=== PATIENT | female | born 1940 | race Caucasian/White ===

== ENCOUNTER 2018-04-10 13:48 | Emergency (ER) | payer MEDICARE, OTHER ==
[2018-04-10] MEDS ORDERED: Ketorolac 30 MG/ML SDV IM ONE (13:57)
[2018-04-10] MEDS ORDERED: Ondansetron 4 MG Tab.DIS PO ONE (14:05)
[2018-04-10] MEDS ORDERED: Cyclobenzaprine 10 MG Tab PO ONE (14:05)
[2018-04-10] MEDS ORDERED: Acetaminophen/HYDROcodone 325-10 MG Tab PO ONE (14:05)
--- NOTE | 2018-04-10 15:36 | EDM.PDOC ---
<Capo Olivo - Last Filed: 04/10/18 17:44> ED HPI GENERAL MEDICAL PROBLEM - General Chief Complaint: Back Pain or Injury Stated Complaint: BACK ACHE Time Seen by Provider: 04/10/18 13:57 Source of Information: Reports: Patient History Limitations: Reports: No Limitations - History of Present Illness INITIAL COMMENTS - FREE TEXT/NARRATIVE: Patient reports back pain that started last night. She describes the pain as cramping on the left upper buttock and hip. She denies numbness or tingling, radiation of pain. No weakness to either leg or problems with urinary or bowel function. She denies fever, chills, chest pain, SOB, neck pain. She does have a history of chronic lower back pain with history of a fall in 1974 and a fusion to her lower back from that fall down the stairs. Does complain of some nausea. Onset Date: 04/09/18 Duration: Intermittent Location: Reports: Back Quality: Reports: Other (cramping) Severity: Moderate Improves with: Reports: Heat Therapy, Medication Associated Symptoms: Reports: Nausea/Vomiting Lower Back Pain Score (Numeric/FACES): 10 - Related Data Allergies Allergy/AdvReac Type Severity Reaction Status Date / Time guaifenesin [From Mucinex] Allergy Hives Verified 04/10/18 13:59 metformin Allergy Diarrhea Verified 04/10/18 13:59 Penicillins Allergy Hives Verified 04/10/18 13:59 Home Meds: Home Meds Aspirin 81 mg PO DAILY 01/25/16 [History] Atenolol 25 mg PO DAILY 01/25/16 [History] Pantoprazole [Protonix] 40 mg PO DAILY 01/25/16 [History] Acetaminophen 650 mg PO Q4H PRN MDD 4000mg daily 04/10/18 [History] Albuterol Sulfate 2.5 mg PO Q4H PRN 04/10/18 [History] Albuterol Sulfate [Proair Hfa] 2 puff PO Q4H PRN 04/10/18 [History] Celecoxib 200 mg PO DAILY 04/10/18 [History] Clobetasol [Clobetasol Propionate 0.05%] 1 applic TOP BID PRN 04/10/18 [History] Fluticasone/Salmeterol [Advair 500-50] 1 puff PO BID 04/10/18 [History] Levothyroxine Sodium [Synthroid] 37.5 mcg PO DAILY 04/10/18 [History] Montelukast [Singulair] 10 mg PO BEDTIME 04/10/18 [History] Olopatadine HCl 1 drop EYEBOTH BID PRN 04/10/18 [History] Scopolamine [Transderm-Scop] 1 patch TOP Q72H 04/10/18 [History] Tiotropium [Spiriva Handihaler] 1 cap PO DAILY 04/10/18 [History] Triamcinolone Acetonide [Kenalog 0.1% Crm] 1 applic TOP BID PRN 04/10/18 [ History] Triamterene/Hydrochlorothiazid [Dyazide 37.5-25] 1 cap PO DAILY 04/10/18 [ History] amLODIPine Besylate [Norvasc] 10 mg PO DAILY 04/10/18 [History] Past Medical History Cardiovascular History: Reports: High Cholesterol, Hypertension Gastrointestinal History: Reports: GERD Musculoskeletal History: Reports: Arthritis, Back Pain, Chronic - Past Surgical History Musculoskeletal Surgical History: Reports: Other (See Below) Other Musculoskeletal Surgeries/Procedures:: back surgery Social & Family History - Tobacco Use Smoking Status *Q: Unknown Ever Smoked - Recreational Drug Use Recreational Drug Use: No ED ROS GENERAL - Review of Systems Review Of Systems: See Below Constitutional: Reports: No Symptoms HEENT: Reports: No Symptoms Respiratory: Reports: No Symptoms Cardiovascular: Reports: No Symptoms Endocrine: Reports: No Symptoms GI/Abdominal: Reports: Nausea : Reports: No Symptoms Musculoskeletal: Reports: Back Pain Skin: Reports: No Symptoms Neurological: Reports: No Symptoms Psychiatric: Reports: No Symptoms Hematologic/Lymphatic: Reports: No Symptoms Immunologic: Reports: No Symptoms ED EXAM,LOWER BACK PAIN/INJURY - Physical Exam Exam: See Below Exam Limited By: No Limitations General Appearance: Alert, WD/WN, Moderate Distress Eye Exam: Bilateral Eye: EOMI, PERRL Head: Atraumatic, Normocephalic Neck: Normal Inspection, Supple, Non-Tender, Full Range of Motion Respiratory/Chest: No Respiratory Distress, Lungs Clear, Normal Breath Sounds, No Accessory Muscle Use, Chest Non-Tender Cardiovascular: Normal Peripheral Pulses, Regular Rate, Rhythm, No Edema, No Gallop, No JVD, No Murmur, No Rub Back Exam: Decreased Range of Motion Extremities: Normal Inspection, Normal Range of Motion, Normal Capillary Refill Neurological: Alert, Normal Mood/Affect, Normal Dorsiflexion, CN II-XII Intact, Oriented x 3, Straight Leg Raise (L), Straight Leg Raise (R) Psychiatric: Normal Affect, Normal Mood Skin Exam: Warm, Dry, Intact, Normal Color, No Rash Lymphatic: No Adenopathy Course - Vital Signs Last Recorded V/S: Last Vital Signs Temp 36.9 C 04/10/18 13:48 Pulse 87 04/10/18 17:07 Resp 16 04/10/18 17:07 BP 155/72 H 04/10/18 17:07 Pulse Ox 98 04/10/18 13:48 - Orders/Labs/Meds Orders: Active Orders 24 hr Category Date Time Status Lumbar Spine 2 or 3V [CR] Stat Exams 04/10/18 13:58 Taken Lumbar Spine wo Cont [CT] Stat Exams 04/10/18 14:57 Taken Labs: Laboratory Tests 04/10/18 04/10/18 Range/Units 15:47 16:13 WBC 13.2 H (4.0-10.0) x10^3/uL RBC 4.66 (4.00-5.50) x10^6/uL Hgb 14.8 D (12.0-16.0) g/dL Hct 43.0 (33.0-47.0) % MCV 92.3 (78.0-93.0) fL MCH 31.8 (26.0-32.0) pg MCHC 34.4 (32.0-36.0) g/dL RDW Coeff of Doyle 13.2 (10.0-15.0) % Plt Count 300 (130-400) x10^3/uL Neut % (Auto) 76.3 (50.0-80.0) % Lymph % (Auto) 15.0 L (25.0-50.0) % [place] % (Auto) 8.3 (2.0-11.0) % Eos % (Auto) 0.2 (0.0-4.0) % Baso % (Auto) 0.2 (0.2-1.2) % Urine Color Yellow (YELLOW) Urine Appearance Slightly cloudy H (CLEAR) Urine pH 7.0 (5.0-8.0) Ur Specific Cash 1.020 Urine Protein Trace H (NEGATIVE) mg/dL Urine Glucose (UA) Negative (NEGATIVE) mg/dL Urine Ketones Negative (NEGATIVE) mg/dL Urine Occult Blood Negative (NEGATIVE) Urine Nitrite Negative (NEGATIVE) Urine Bilirubin Negative (NEGATIVE) Urine Urobilinogen 0.2 (0.2) EU/dL Ur Leukocyte Esterase Small H (NEGATIVE) Urine RBC 0-5 (NOT SEEN) /HPF Urine WBC 5-10 H (NOT SEEN) /HPF Ur Squamous Epith Cells Many H (NEGATIVE) /HPF Urine Bacteria Rare (NEGATIVE) /HPF Urine Mucus Rare H (NEGATIVE) /LPF Meds: Medications Discontinued Medications Generic Name Dose Route Start Last Admin Trade Name Freq PRN Reason Stop Dose Admin Hydrocodone Bitart/Acetaminophen 1 tab 04/10/18 14:05 04/10/18 14:22 [place] 325-10 Mg PO 04/10/18 14:06 1 tab ONETIME ONE Administration Cyclobenzaprine HCl 10 mg 04/10/18 14:05 04/10/18 14:23 Flexeril PO 04/10/18 14:06 10 mg ONETIME ONE Administration Ketorolac Tromethamine 30 mg 04/10/18 13:57 04/10/18 14:07 Toradol IM 04/10/18 13:58 30 mg ONETIME ONE Administration Ondansetron HCl 4 mg 04/10/18 14:05 04/10/18 14:23 Zofran Odt PO 04/10/18 14:06 4 mg ONETIME ONE Administration Departure - Departure Disposition: DC/Tfer to Acute Hospital 02 Condition: Fair Clinical Impression: Spondylisthesis, Pars defect with spondylolisthesis, Spinal cord compression - Discharge Information *PRESCRIPTION DRUG MONITORING PROGRAM REVIEWED*: Not Applicable *COPY OF PRESCRIPTION DRUG MONITORING REPORT IN PATIENT JOEY: Not Applicable ED Communication - ED Communication Date/Time Date: 04/10/18 Time Called: 16:40 - Discussed Case With (1) Discussed Case With (1): Other (I did discuss the patient case with Dr. Byrne in [place] at [facility] regarding her CT scan. I also did discuss plan with Corey Randhawa who did agree to admit the patient for acute pain control. She is to have an MRI and follow up with neurosurgery next week or as soon as possible.) - Problem List & Annotations (1) Pars defect with spondylolisthesis SNOMED Code(s): 578752595 Code(s): M43.00 - SPONDYLOLYSIS, SITE UNSPECIFIED; M43.10 - SPONDYLOLISTHESIS , SITE UNSPECIFIED Status: Acute Priority: Medium Current Visit: No - Problem List Review Problem List Initiated/Reviewed/Updated: Yes - Assessment/Plan Assessment:: back pain pars defect with spondylolisthesis Plan: Please follow up with your primary doctor. You do have significant spinal degeneration and should have an MRI performed. Please take the medications I prescribed as written. I did prescribe: Flexeril 10 mg TID Hydrocodone/APAP 10/325 mg q 4-6 hours Medrol dose pack to take as directed on packaging You may also try warm baths, warm pack, or heating pads. Also try topical analgesic creams like icy hot, or a TENS unit that you can buy at a local pharmacy. Please call if you have any additional concerns or questions. <Corey Randhawa - Last Filed: 04/10/18 18:05> Departure - Departure Time of Disposition: 18:03 ED Communication - ED Communication Date/Time Date: 04/10/18 Time Called: 17:49 - Discussed Case With (1) Discussed Case With (1): Admitting Provider (Dr. Peterson, Hospitalist [facility]) - Conversation Summary Admitting Provider Agreed to Patient's Admission: Yes Patient Aware of Amendments fo Care Plan: Yes - Assessment/Plan Plan: Case discussed with Dr. Peterson, [facility]. Patient accepted in transfer. Patient will be transferred POV. Patient is aware of the change in plan of care and wishes to proceed.
== END 2018-04-10 18:50 | disposition short-term general hospital (02) ==
LOC: VM.ED 13:48 → VM.MS 17:18 → UNDOADMIN 17:18 → UNDODISIN 18:20
DX: M43.17 Spondylolisthesis, lumbosacral region (principal); G95.20 Unspecified cord compression; I10 Essential (primary) hypertension; Z79.82 Long term (current) use of aspirin; Z79.899 Other long term (current) drug therapy; Z88.0 Allergy status to penicillin; Z88.8 Allergy status to other drugs, medicaments and biological substances
CPT/HCPCS: 36415; 72100; 72131; 81001; 85025; 99285; A9270-GY; J1885

== ENCOUNTER 2018-12-23 09:49 | Day surgery (SDC) | payer MEDICARE, OTHER ==
[~2018-12-23 09:49] MED LIST: Lactated Ringers 1,000 ML IV SCH; Sodium Chloride 0.9% 10 ML Syringe FLUSH PRN
[2018-12-23] MEDS ORDERED: Propofol 200 MG/20 ML SDV ONE (10:53)
[2018-12-23] MEDS ORDERED: fentaNYL 100 MCG/2 ML SDV ONE (10:53)
--- NOTE | 2018-12-23 14:09 | OR ---
PREOPERATIVE DIAGNOSIS: New-onset constipation. POSTOPERATIVE DIAGNOSIS: New-onset constipation. PROCEDURE PERFORMED: Colonoscopy. INDICATION: The patient is a 77-year-old female with history of hemorrhoidal disease. She has also noticed some increased constipation symptoms, presents for colonoscopy for further evaluation. PROCEDURE DETAILS: This was done in the procedure room. Sedation was given per Anesthesia. She was placed in left lateral position. First, a rectal exam was done, was normal. The scope was introduced in the rectum, slowly advanced to the rectum, sigmoid, descending, transverse, and ascending colon until the cecum was reached. Upon reaching the cecum, the scope was slowly withdrawn with no mucosal surface on the way out. No mucosal abnormalities, lesions, or polyps were noted. FINAL DIAGNOSIS: Diverticulosis which was found in the sigmoid colon. BKD: 12/23/2018 12:35:15 MODL: 12/23/2018 13:44:14 /[id number]
== END 2018-12-23 13:57 | disposition home or self-care (01) ==
LOC: VM.SDS 09:49
PROVIDERS: ATTEND Surgery
DX: K57.30 Diverticulosis of large intestine without perforation or abscess without bleeding (principal); K21.9 Gastro-esophageal reflux disease without esophagitis; I10 Essential (primary) hypertension; G47.33 Obstructive sleep apnea (adult) (pediatric); M81.0 Age-related osteoporosis without current pathological fracture; I65.29 Occlusion and stenosis of unspecified carotid artery; M35.3 Polymyalgia rheumatica; R73.03 Prediabetes; J44.9 Chronic obstructive pulmonary disease, unspecified; E78.5 Hyperlipidemia, unspecified; E03.9 Hypothyroidism, unspecified; Z79.82 Long term (current) use of aspirin; Z79.52 Long term (current) use of systemic steroids; Z79.899 Other long term (current) drug therapy; Z87.891 Personal history of nicotine dependence; Z88.0 Allergy status to penicillin; Z88.6 Allergy status to analgesic agent; Z88.8 Allergy status to other drugs, medicaments and biological substances; Z99.89 Dependence on other enabling machines and devices
CPT/HCPCS: 00811; G0121; J2704; J3010; J7120

== ENCOUNTER 2022-01-18 17:34 | Emergency (ER) | payer MEDICARE, OTHER | END 2022-01-18 20:17 | disposition home or self-care (01) | LOC: VM.ED 17:34 | DX: S42.91XA Fracture of right shoulder girdle, part unspecified, initial encounter for closed fracture (principal); I10 Essential (primary) hypertension; E78.00 Pure hypercholesterolemia, unspecified; J44.9 Chronic obstructive pulmonary disease, unspecified; K21.9 Gastro-esophageal reflux disease without esophagitis; M19.90 Unspecified osteoarthritis, unspecified site; E03.9 Hypothyroidism, unspecified; Z79.899 Other long term (current) drug therapy; Z88.8 Allergy status to other drugs, medicaments and biological substances; Z88.0 Allergy status to penicillin; W18.09XA Striking against other object with subsequent fall, initial encounter | CPT/HCPCS: 73030-RT; 73070-RT; 73562-50; 99283; 99283-25 ==

== ENCOUNTER 2022-02-10 18:46 | Emergency (ER) | payer MEDICARE, OTHER ==
[2022-02-10 19:49] LABS: CORONAVIRUS COVID-19 NAA POSITIVE (NEGATIVE); RESPIRATORY SYNCYTIAL VIR NAA NEGATIVE (NEGATIVE)
[2022-02-10] MEDS ORDERED: Famotidine 20 MG/2 ML SDV IVPUSH PRN (19:59)
[2022-02-10] MEDS ORDERED: methylPREDNISolone Sodium Succinate 125 MG/2 ML SDV IVPUSH PRN (19:59)
[2022-02-10] MEDS ORDERED: EPINEPHrine 1 MG/1 ML Amp IM PRN (19:59)
[2022-02-10] MEDS ORDERED: diphenhydrAMINE 50 MG/ML SDV IVPUSH PRN (19:59)
[2022-02-10] MEDS ORDERED: Sodium Chloride 0.9% 10 ML Syringe FLUSH SCH (20:00)
== END 2022-02-10 21:30 | disposition home or self-care (01) ==
LOC: VM.ED 18:46
DX: U07.1 COVID-19 (principal); R50.9 Fever, unspecified; R11.0 Nausea; J44.9 Chronic obstructive pulmonary disease, unspecified; I10 Essential (primary) hypertension; Z88.8 Allergy status to other drugs, medicaments and biological substances; Z88.0 Allergy status to penicillin; Z79.899 Other long term (current) drug therapy; Z79.82 Long term (current) use of aspirin; Z90.49 Acquired absence of other specified parts of digestive tract
CPT/HCPCS: 0241U; 99284; 99284-25; M0222; Q0222

== ENCOUNTER 2023-08-14 11:32 | Inpatient (IN) | payer MEDICARE, OTHER ==
[2023-08-14] MEDS ORDERED: LIDOCAINE 5% TOP PRN (16:05)
[2023-08-14] MEDS ORDERED: Benzonatate 100 MG Cap PO PRN (16:05)
[2023-08-14] MEDS ORDERED: Codeine/guaiFENesin 10-100 MG/5 ML Syrup 5 ML Cup PO PRN (16:05)
[2023-08-14] MEDS ORDERED: Ondansetron 4 MG Tab.DIS PO PRN (16:05)
[2023-08-14] MEDS ORDERED: Acetaminophen/HYDROcodone 325-5 MG Tab PO PRN (16:05)
[2023-08-14] MEDS ORDERED: Albuterol HFA 18 Gm Inhaler INH PRN (16:05)
[2023-08-14] MEDS ORDERED: Ketotifen 0.025% Ophth Soln 5 ML Bottle EYEBOTH PRN (16:05)
[2023-08-14] MEDS ORDERED: Triamcinolone Acetonide 0.1% Crm 15 GM Tube TOP PRN (16:05)
[2023-08-14] MEDS ORDERED: Albuterol 0.083% 2.5 MG/3 ML Neb Soln INH PRN (16:05)
[2023-08-14] MEDS: Cefdinir 300 MG Cap PO SCH (20:51)
[2023-08-14] MEDS: Formoterol/Mometasone 200-5 MCG 13 GM Inhaler INH SCH (20:52)
[2023-08-14] MEDS: Montelukast 10 MG Tab PO SCH (20:52)
[2023-08-14] MEDS ORDERED: Calcium Carbonate 750 MG Tab.Chew PO PRN (21:06)
[2023-08-15] MEDS: Formoterol/Mometasone 200-5 MCG 13 GM Inhaler INH SCH ×2 (06:18→20:30)
[2023-08-15] MEDS ORDERED: Celecoxib 100 MG Cap PO SCH (09:00)
[2023-08-15] MEDS ORDERED: Clopidogrel 75 MG Tab PO SCH (09:00)
[2023-08-15] MEDS: Aspirin 81 MG Tab.Chew PO SCH (09:34)
[2023-08-15] MEDS: Isosorbide Mononitrate 30 MG Tab.ER PO SCH (09:35)
[2023-08-15] MEDS: Levothyroxine 75 MCG Tab PO SCH ×2 (09:36→19:26)
[2023-08-15] MEDS: Atenolol 50 MG Tab PO SCH (09:38)
[2023-08-15] MEDS: Losartan 25 MG Tab PO SCH (09:39)
[2023-08-15] MEDS: Loratadine 10 MG Tab PO SCH (09:39)
[2023-08-15] MEDS: Furosemide 20 MG Tab PO SCH (09:44)
[2023-08-15] MEDS: Pantoprazole 40 MG Tab.CR PO SCH (09:44)
[2023-08-15] MEDS: Acetaminophen 325 MG Tab PO PRN (20:32)
[2023-08-15] MEDS: Cefdinir 300 MG Cap PO SCH (20:33)
[2023-08-15] MEDS: Montelukast 10 MG Tab PO SCH (20:33)
[2023-08-15] MEDS: Clopidogrel 75 MG Tab PO SCH (22:00)
[2023-08-15] MEDS: Celecoxib 100 MG Cap PO SCH (22:00)
[2023-08-16] MEDS: Formoterol/Mometasone 200-5 MCG 13 GM Inhaler INH SCH ×2 (06:56→20:27)
[2023-08-16] MEDS: Pantoprazole 40 MG Tab.CR PO SCH (08:49)
[2023-08-16] MEDS: Aspirin 81 MG Tab.Chew PO SCH (08:49)
[2023-08-16] MEDS: Atenolol 50 MG Tab PO SCH (08:50)
[2023-08-16] MEDS: Isosorbide Mononitrate 30 MG Tab.ER PO SCH (08:50)
[2023-08-16] MEDS: Levothyroxine 75 MCG Tab PO SCH (08:52)
[2023-08-16] MEDS: Losartan 25 MG Tab PO SCH (08:53)
[2023-08-16] MEDS: Loratadine 10 MG Tab PO SCH (08:54)
[2023-08-16] MEDS: Celecoxib 100 MG Cap PO SCH (20:27)
[2023-08-16] MEDS: Clopidogrel 75 MG Tab PO SCH (20:27)
[2023-08-16] MEDS: Montelukast 10 MG Tab PO SCH (20:27)
[2023-08-16] MEDS: Cefdinir 300 MG Cap PO SCH (20:27)
[2023-08-16] MEDS: Docusate Sodium 100 MG Cap PO SCH (20:28)
[2023-08-16] MEDS: Acetaminophen 325 MG Tab PO PRN (21:09)
[2023-08-17] MEDS: Formoterol/Mometasone 200-5 MCG 13 GM Inhaler INH SCH ×2 (06:49→21:58)
[2023-08-17] MEDS: Losartan 25 MG Tab PO SCH (08:50)
[2023-08-17] MEDS: Aspirin 81 MG Tab.Chew PO SCH (08:50)
[2023-08-17] MEDS: Docusate Sodium 100 MG Cap PO SCH ×2 (08:50→21:54)
[2023-08-17] MEDS: Levothyroxine 75 MCG Tab PO SCH (08:51)
[2023-08-17] MEDS: Pantoprazole 40 MG Tab.CR PO SCH (08:51)
[2023-08-17] MEDS: Atenolol 50 MG Tab PO SCH (08:53)
[2023-08-17] MEDS: Furosemide 20 MG Tab PO SCH (08:53)
[2023-08-17] MEDS: Loratadine 10 MG Tab PO SCH (08:54)
[2023-08-17] MEDS: Isosorbide Mononitrate 30 MG Tab.ER PO SCH (08:54)
[2023-08-17] MEDS: Cefdinir 300 MG Cap PO SCH (21:53)
[2023-08-17] MEDS: Celecoxib 100 MG Cap PO SCH (21:54)
[2023-08-17] MEDS: Clopidogrel 75 MG Tab PO SCH (21:54)
[2023-08-17] MEDS: Montelukast 10 MG Tab PO SCH (21:54)
[2023-08-18] MEDS: Formoterol/Mometasone 200-5 MCG 13 GM Inhaler INH SCH ×2 (06:40→20:34)
[2023-08-18] MEDS: Docusate Sodium 100 MG Cap PO SCH ×2 (10:28→20:33)
[2023-08-18] MEDS: Pantoprazole 40 MG Tab.CR PO SCH (10:28)
[2023-08-18] MEDS: Losartan 25 MG Tab PO SCH (10:28)
[2023-08-18] MEDS: Atenolol 50 MG Tab PO SCH (10:29)
[2023-08-18] MEDS: Isosorbide Mononitrate 30 MG Tab.ER PO SCH (10:29)
[2023-08-18] MEDS: Aspirin 81 MG Tab.Chew PO SCH (10:30)
[2023-08-18] MEDS: Levothyroxine 75 MCG Tab PO SCH (10:30)
[2023-08-18] MEDS: Loratadine 10 MG Tab PO SCH (10:30)
[2023-08-18] MEDS: Celecoxib 100 MG Cap PO SCH (20:33)
[2023-08-18] MEDS: Cefdinir 300 MG Cap PO SCH (20:33)
[2023-08-18] MEDS: Montelukast 10 MG Tab PO SCH (20:33)
[2023-08-18] MEDS: Clopidogrel 75 MG Tab PO SCH (20:34)
[2023-08-18] MEDS: Acetaminophen 325 MG Tab PO PRN (22:28)
[2023-08-19] MEDS: Formoterol/Mometasone 200-5 MCG 13 GM Inhaler INH SCH ×2 (06:42→21:29)
[2023-08-19] MEDS: Aspirin 81 MG Tab.Chew PO SCH (08:06)
[2023-08-19] MEDS: Levothyroxine 75 MCG Tab PO SCH (08:10)
[2023-08-19] MEDS: Loratadine 10 MG Tab PO SCH (08:10)
[2023-08-19] MEDS: Isosorbide Mononitrate 30 MG Tab.ER PO SCH (08:10)
[2023-08-19] MEDS: Losartan 25 MG Tab PO SCH (08:11)
[2023-08-19] MEDS: Pantoprazole 40 MG Tab.CR PO SCH (08:11)
[2023-08-19] MEDS: Atenolol 50 MG Tab PO SCH (08:12)
[2023-08-19] MEDS: Docusate Sodium 100 MG Cap PO SCH ×2 (08:12→21:27)
[2023-08-19] MEDS ORDERED: Ezetimibe 10 MG Tab PO SCH (09:00)
[2023-08-19] MEDS: Clopidogrel 75 MG Tab PO SCH (21:27)
[2023-08-19] MEDS: Celecoxib 100 MG Cap PO SCH (21:27)
[2023-08-19] MEDS: Montelukast 10 MG Tab PO SCH (21:27)
[2023-08-20] MEDS: Acetaminophen 325 MG Tab PO PRN (04:55)
[2023-08-20] MEDS: Formoterol/Mometasone 200-5 MCG 13 GM Inhaler INH SCH ×2 (06:39→21:25)
[2023-08-20] MEDS: Atenolol 50 MG Tab PO SCH (08:26)
[2023-08-20] MEDS: Aspirin 81 MG Tab.Chew PO SCH (08:26)
[2023-08-20] MEDS: Docusate Sodium 100 MG Cap PO SCH ×2 (08:26→21:23)
[2023-08-20] MEDS: Loratadine 10 MG Tab PO SCH (08:26)
[2023-08-20] MEDS: Losartan 25 MG Tab PO SCH (08:28)
[2023-08-20] MEDS: Levothyroxine 75 MCG Tab PO SCH (08:28)
[2023-08-20] MEDS: Furosemide 20 MG Tab PO SCH (08:29)
[2023-08-20] MEDS: Pantoprazole 40 MG Tab.CR PO SCH (08:29)
[2023-08-20] MEDS: Isosorbide Mononitrate 30 MG Tab.ER PO SCH (08:30)
[2023-08-20] MEDS: Celecoxib 100 MG Cap PO SCH (21:22)
[2023-08-20] MEDS: Clopidogrel 75 MG Tab PO SCH (21:23)
[2023-08-20] MEDS: Montelukast 10 MG Tab PO SCH (21:23)
[2023-08-21] MEDS: Formoterol/Mometasone 200-5 MCG 13 GM Inhaler INH SCH (06:15)
[2023-08-21] MEDS: Atenolol 50 MG Tab PO SCH (08:30)
[2023-08-21] MEDS: Pantoprazole 40 MG Tab.CR PO SCH (08:30)
[2023-08-21] MEDS: Loratadine 10 MG Tab PO SCH (08:30)
[2023-08-21] MEDS: Isosorbide Mononitrate 30 MG Tab.ER PO SCH (08:31)
[2023-08-21] MEDS: Aspirin 81 MG Tab.Chew PO SCH (08:31)
[2023-08-21] MEDS: Levothyroxine 75 MCG Tab PO SCH (08:31)
[2023-08-21] MEDS: Docusate Sodium 100 MG Cap PO SCH (08:32)
[2023-08-21] MEDS: Losartan 25 MG Tab PO SCH (08:32)
== END 2023-08-21 12:00 | disposition home or self-care (01) | DRG 948 ==
LOC: VM.MS 13:30
PROVIDERS: ADMIT Nurse Practitioner Family; ATTEND Nurse Practitioner Family
DX: R53.1 Weakness (principal); K55.1 Chronic vascular disorders of intestine; R53.81 Other malaise; J44.9 Chronic obstructive pulmonary disease, unspecified; I10 Essential (primary) hypertension; E78.5 Hyperlipidemia, unspecified; E03.9 Hypothyroidism, unspecified; K21.9 Gastro-esophageal reflux disease without esophagitis; M35.3 Polymyalgia rheumatica; I73.9 Peripheral vascular disease, unspecified; K59.00 Constipation, unspecified; I25.10 Atherosclerotic heart disease of native coronary artery without angina pectoris; Z88.8 Allergy status to other drugs, medicaments and biological substances; Z90.49 Acquired absence of other specified parts of digestive tract; Z98.890 Other specified postprocedural states
CPT/HCPCS: 82947; 94760; 97110-GP; 97116-GP; 97162-GP; 97165-GO; 97535-GO; 99306; A9270-GY

== ENCOUNTER 2024-03-06 10:30 | Inpatient (IN) | payer MEDICARE, OTHER ==
[2024-03-06] MEDS ORDERED: Ketotifen 0.025% Ophth Soln 5 ML Bottle EYEBOTH PRN (12:57)
[2024-03-06] MEDS: Acetaminophen 325 MG Tab PO PRN (20:00)
[2024-03-06] MEDS: Budesonide 0.5 MG/2 ML Neb Susp NEB SCH (20:10)
[2024-03-06] MEDS: Montelukast 10 MG Tab PO SCH (20:10)
[2024-03-06] MEDS: Arformoterol 15 MCG/2 ML Neb Soln NEB SCH (20:20)
[2024-03-07] MEDS: Metoprolol Succinate 25 MG Tab.ER PO SCH (08:36)
[2024-03-07] MEDS: Furosemide 40 MG Tab PO SCH (08:37)
[2024-03-07] MEDS: Losartan 25 MG Tab PO SCH (08:37)
[2024-03-07] MEDS: Levothyroxine 75 MCG Tab PO SCH (08:39)
[2024-03-07] MEDS: Clopidogrel 75 MG Tab PO SCH (08:39)
[2024-03-07] MEDS: Aspirin 81 MG Tab.EC PO SCH (08:41)
[2024-03-07] MEDS: Pantoprazole 40 MG Tab.CR PO SCH (08:41)
[2024-03-07] MEDS: Fluticasone Propionate Nasal Spray 9.9 ML BOTTLE NASBOTH SCH (08:42)
[2024-03-07] MEDS: Empagliflozin 10 MG Tab PO SCH (08:42)
[2024-03-07] MEDS: Menthol 10%/Methyl Salicylate 15% 85 GM Tube TOP PRN (14:38)
[2024-03-07] MEDS ORDERED: Albuterol/Ipratropium 3.0-0.5 MG/3 ML Neb Soln NEB PRN (21:19)
[2024-03-09] MEDS: Ezetimibe 10 MG Tab PO SCH (09:04)
[2024-03-09] MEDS: Benzonatate 100 MG Cap PO PRN (22:09)
[2024-03-10 06:51] LABS: BASOPHILS PERCENT AUTO 0.4 % (0.2-1.2); EOSINOPHILS ABSOLUTE AUTO 0.1 x10^3/uL (0.0-0.5); EOSINOPHILS PERCENT AUTO 1.1 % (0.0-4.0); HEMATOCRIT 26.2 % (33.0-47.0); HEMOGLOBIN 8.5 g/dL (12.0-16.0); IMMATURE GRAN ABSOLUTE AUTO 0.02 x10^3/uL (0.00-0.07); LYMPHOCYTES ABSOLUTE AUTO 1.6 x10^3/uL (1.0-4.8); LYMPHOCYTES PERCENT AUTO 29.5 % (25.0-50.0); MEAN CORPUSCULAR HEMOGLOBIN 29.4 pg (26.0-32.0); MEAN CORPUSCULAR HGB CONC 32.4 g/dL (32.0-36.0); MEAN CORPUSCULAR VOLUME 90.7 fL (78.0-93.0); MONOCYTES ABSOLUTE AUTO 0.8 x10^3/uL (0.0-0.8); NEUTROPHILS ABSOLUTE AUTO 2.9 x10^3/uL (1.8-7.7); NEUTROPHILS PERCENT AUTO 53.6 % (50.0-80.0); PLATELET COUNT,PLT 243 x10^3/uL (130-400); RED BLOOD CELL COUNT 2.89 x10^6/uL (4.00-5.50); WHITE BLOOD CELL COUNT,WBC 5.4 x10^3/uL (4.0-10.0)
[2024-03-10 06:59] LABS: CALCIUM 8.7 mg/dL (8.5-10.1); CREATININE 1.3 mg/dL (0.55-1.02); EST CRCL DRUG DOSING (CG) 25.02 mL/min; POTASSIUM,K 3.6 mmol/L (3.5-5.1)
[2024-03-10 07:00] LABS: ANION GAP 11.6 mmol/L (5-15)
[2024-03-10] MEDS: Benzonatate 100 MG Cap PO SCH (18:37)
[2024-03-10] MEDS: Codeine/guaiFENesin 10-100 MG/5 ML Syrup 5 ML Cup PO PRN (23:53)
[2024-03-11] MEDS: Albuterol 0.083% 2.5 MG/3 ML Neb Soln NEB PRN (07:20)
[2024-03-11] MEDS: Spironolactone 25 MG Tab PO SCH (09:19)
[2024-03-13 07:19] LABS: BASOPHILS PERCENT AUTO 0.6 % (0.2-1.2); EOSINOPHILS ABSOLUTE AUTO 0.1 x10^3/uL (0.0-0.5); EOSINOPHILS PERCENT AUTO 0.8 % (0.0-4.0); HEMATOCRIT 28.1 % (33.0-47.0); HEMOGLOBIN 8.8 g/dL (12.0-16.0); IMMATURE GRAN ABSOLUTE AUTO 0.01 x10^3/uL (0.00-0.07); LYMPHOCYTES ABSOLUTE AUTO 1.4 x10^3/uL (1.0-4.8); MEAN CORPUSCULAR HEMOGLOBIN 28.7 pg (26.0-32.0); MEAN CORPUSCULAR HGB CONC 31.3 g/dL (32.0-36.0); MEAN CORPUSCULAR VOLUME 91.5 fL (78.0-93.0); MONOCYTES PERCENT AUTO 15.2 % (2.0-11.0); NEUTROPHILS ABSOLUTE AUTO 3.8 x10^3/uL (1.8-7.7); NEUTROPHILS PERCENT AUTO 60.2 % (50.0-80.0); RED BLOOD CELL COUNT 3.07 x10^6/uL (4.00-5.50); WHITE BLOOD CELL COUNT,WBC 6.3 x10^3/uL (4.0-10.0)
[2024-03-13 07:31] LABS: ANION GAP 9.9 mmol/L (5-15); CALCIUM 8.9 mg/dL (8.5-10.1); CREATININE 1.4 mg/dL (0.55-1.02); EST CRCL DRUG DOSING (CG) 23.24 mL/min; POTASSIUM,K 3.9 mmol/L (3.5-5.1)
[2024-03-13 07:55] LABS: PLATELET COUNT,PLT 343 x10^3/uL (130-400)
[2024-03-19 06:55] LABS: BASOPHILS PERCENT AUTO 0.4 % (0.2-1.2); EOSINOPHILS ABSOLUTE AUTO 0.1 x10^3/uL (0.0-0.5); EOSINOPHILS PERCENT AUTO 0.7 % (0.0-4.0); HEMOGLOBIN 9.3 g/dL (12.0-16.0); IMMATURE GRAN ABSOLUTE AUTO 0.02 x10^3/uL (0.00-0.07); LYMPHOCYTES ABSOLUTE AUTO 2.3 x10^3/uL (1.0-4.8); MEAN CORPUSCULAR HEMOGLOBIN 28.4 pg (26.0-32.0); MEAN CORPUSCULAR HGB CONC 32.1 g/dL (32.0-36.0); MEAN CORPUSCULAR VOLUME 88.7 fL (78.0-93.0); MONOCYTES ABSOLUTE AUTO 1.1 x10^3/uL (0.0-0.8); MONOCYTES PERCENT AUTO 12.7 % (2.0-11.0); NEUTROPHILS ABSOLUTE AUTO 4.9 x10^3/uL (1.8-7.7); RED BLOOD CELL COUNT 3.27 x10^6/uL (4.00-5.50); WHITE BLOOD CELL COUNT,WBC 8.4 x10^3/uL (4.0-10.0)
[2024-03-19 07:10] LABS: PLATELET COUNT,PLT 306 x10^3/uL (130-400)
[2024-03-19 07:11] LABS: ANION GAP 12.1 mmol/L (5-15); CALCIUM 8.8 mg/dL (8.5-10.1); CREATININE 1.3 mg/dL (0.55-1.02); EST CRCL DRUG DOSING (CG) 25.02 mL/min; POTASSIUM,K 4.1 mmol/L (3.5-5.1)
== END 2024-03-19 10:20 | disposition home health service (06) | DRG 948 ==
LOC: VM.MS 11:27
PROVIDERS: ADMIT Internal Medicine; ATTEND Internal Medicine
DX: R53.1 Weakness (principal); I50.42 Chronic combined systolic (congestive) and diastolic (congestive) heart failure; I13.0 Hypertensive heart and chronic kidney disease with heart failure and stage 1 through stage 4 chronic kidney disease, or unspecified chronic kidney disease; J96.12 Chronic respiratory failure with hypercapnia; R53.81 Other malaise; I34.0 Nonrheumatic mitral (valve) insufficiency; I25.10 Atherosclerotic heart disease of native coronary artery without angina pectoris; J43.9 Emphysema, unspecified; I27.20 Pulmonary hypertension, unspecified; E03.9 Hypothyroidism, unspecified; K21.9 Gastro-esophageal reflux disease without esophagitis; E78.5 Hyperlipidemia, unspecified; F41.9 Anxiety disorder, unspecified; F32.A Depression, unspecified; J32.9 Chronic sinusitis, unspecified; N18.9 Chronic kidney disease, unspecified; D63.1 Anemia in chronic kidney disease; M35.3 Polymyalgia rheumatica; I25.5 Ischemic cardiomyopathy; Z95.828 Presence of other vascular implants and grafts; Z86.16 Personal history of COVID-19; I25.2 Old myocardial infarction; Z88.0 Allergy status to penicillin; Z88.8 Allergy status to other drugs, medicaments and biological substances; Z87.01 Personal history of pneumonia (recurrent); Z98.890 Other specified postprocedural states; Z87.81 Personal history of (healed) traumatic fracture; Z90.49 Acquired absence of other specified parts of digestive tract
CPT/HCPCS: 36415; 71046; 80048; 82947; 85025; 94640; 94667; 94668; 94760; 95851-GO; 97110-GP; 97116-GP; 97161-GP; 97165-GO; 97535-GO; A9270-GY; J3490; J7613-GY

== ENCOUNTER 2024-03-28 13:41 | Emergency (ER) | payer MEDICARE, OTHER ==
[~2024-03-28 13:41] MED LIST changes: -Lactated Ringers 1,000 ML IV SCH
[2024-03-28 13:56] LABS: BASOPHILS PERCENT AUTO 0.3 % (0.2-1.2); EOSINOPHILS ABSOLUTE AUTO 0.1 x10^3/uL (0.0-0.5); EOSINOPHILS PERCENT AUTO 1.1 % (0.0-4.0); HEMATOCRIT 32.4 % (33.0-47.0); HEMOGLOBIN 10.2 g/dL (12.0-16.0); IMMATURE GRAN ABSOLUTE AUTO 0.02 x10^3/uL (0.00-0.07); LYMPHOCYTES ABSOLUTE AUTO 2.7 x10^3/uL (1.0-4.8); LYMPHOCYTES PERCENT AUTO 29.9 % (25.0-50.0); MEAN CORPUSCULAR HEMOGLOBIN 27.2 pg (26.0-32.0); MEAN CORPUSCULAR HGB CONC 31.5 g/dL (32.0-36.0); MEAN CORPUSCULAR VOLUME 86.4 fL (78.0-93.0); MONOCYTES ABSOLUTE AUTO 1.2 x10^3/uL (0.0-0.8); MONOCYTES PERCENT AUTO 13.6 % (2.0-11.0); NEUTROPHILS ABSOLUTE AUTO 4.9 x10^3/uL (1.8-7.7); NEUTROPHILS PERCENT AUTO 54.9 % (50.0-80.0); PLATELET COUNT,PLT 246 x10^3/uL (130-400); RED BLOOD CELL COUNT 3.75 x10^6/uL (4.00-5.50); WHITE BLOOD CELL COUNT,WBC 8.9 x10^3/uL (4.0-10.0)
[2024-03-28 14:07] LABS: INR 1.2 (0.9-1.1); PROTHROMBIN TIME 12.1 SEC (8.9-11.5)
[2024-03-28 14:13] LABS: APPEARANCE,URINE CLEAR (CLEAR); BILIRUBIN,URINE NEGATIVE (NEGATIVE); COLOR,URINE YELLOW (YELLOW); GLUCOSE,URINE 500 mg/dL (NEGATIVE); KETONES,URINE NEGATIVE (NEGATIVE); LEUKOCYTE ESTERASE,URINE NEGATIVE (NEGATIVE); NITRITE,URINE NEGATIVE (NEGATIVE); OCCULT BLOOD,URINE NEGATIVE (NEGATIVE); PROTEIN,URINE TRACE mg/dL (NEGATIVE); UROBILINOGEN,URINE 0.2 EU/dL (0.2)
[2024-03-28 14:14] LABS: LACTIC ACID 1.8 mmol/L (0.4-2.0)
[2024-03-28 14:17] LABS: BACTERIA,URINE OCCASIONAL /HPF (NOT SEEN); MUCUS,URINE OCCASIONAL /LPF (NOT SEEN); RBC,URINE 0-5 /HPF (NOT SEEN); SQUAMOUS EPITHELIAL CELLS,UR OCCASIONAL /HPF (NOT SEEN); WBC,URINE 0-5 /HPF (NOT SEEN)
[2024-03-28 14:18] LABS: A/G RATIO 1.06; ALANINE AMINOTRANSFERASE,ALT 14 U/L (14-59); ALBUMIN 3.5 g/dL (3.4-5.0); ALKALINE PHOSPHATASE 98 U/L (46-116); ASPARTATE AMNIOTRANSFERASE,AST 22 U/L (15-37); BILIRUBIN TOTAL 0.9 mg/dL (0.2-1.0); BLOOD UREA NITROGEN,BUN 17 mg/dL (7-18); CALCIUM 9.3 mg/dL (8.5-10.1); CARBON DIOXIDE,CO2 29 mmol/L (21-32); CHLORIDE,CL 98 mmol/L (98-107); CREATININE 1.3 mg/dL (0.55-1.02); GLUCOSE RANDOM 112 mg/dL (70-99); MAGNESIUM 1.8 mg/dL (1.8-2.4); POTASSIUM,K 3.6 mmol/L (3.5-5.1); PRO B-TYPE NATRIUR PEPT,BNPPRO 12838 pg/mL (<=450); PROTEIN TOTAL,TP 6.8 g/dL (6.4-8.2); SODIUM,NA 137 mmol/L (136-145)
[2024-03-28 14:19] LABS: ANION GAP 13.6 mmol/L (5-15); ESTIMATED GFR 40 mL/min (>=60)
[2024-03-28] MEDS: Lactated Ringers 1,000 ML IV ONE (14:20)
[2024-03-28] MEDS: Furosemide 40 MG/4 ML VIAL IV ONE (16:11)
[2024-03-28] MEDS: HYDROmorphone 0.5 MG/0.5 ML Syringe IVPUSH ONE (16:17)
== END 2024-03-28 17:51 | disposition short-term general hospital (02) ==
LOC: VM.ED 13:41
DX: R11.2 Nausea with vomiting, unspecified (principal); I11.0 Hypertensive heart disease with heart failure; I50.9 Heart failure, unspecified; I25.10 Atherosclerotic heart disease of native coronary artery without angina pectoris; J44.9 Chronic obstructive pulmonary disease, unspecified; K21.9 Gastro-esophageal reflux disease without esophagitis; E03.9 Hypothyroidism, unspecified; Z86.16 Personal history of COVID-19; Z90.49 Acquired absence of other specified parts of digestive tract; Z79.899 Other long term (current) drug therapy; Z79.1 Long term (current) use of non-steroidal anti-inflammatories (NSAID); Z79.82 Long term (current) use of aspirin; Z79.890 Hormone replacement therapy; Z88.0 Allergy status to penicillin; Z88.8 Allergy status to other drugs, medicaments and biological substances
CPT/HCPCS: 71045; 80053; 81001; 83605; 83735; 83880; 84484; 85025; 85610; 93005; 93010; 96361; 96374; 96375; 99284; 99285-25; J1170; J1940; J7120